=== PATIENT | male | born 1960 | race Caucasian/White ===

== ENCOUNTER 2021-12-29 11:24 | Outpatient (CLI) | payer BC ==
[2021-12-29 12:27] LABS: Mean Corpuscular HGB CONC 34.8 g/dL (32.0-36.0); Mean Corpuscular Hemoglobin 30.6 pg (27.0-33.0); Mean Corpuscular Volume 87.8 fl (81.2-95.1); Mean Platelet Volume 11.3 fl (7.4-10.4); Platelet Count 192 10x3/uL (150-450); RBC Distribution Width 12.7 % (11.5-14.5); Red Blood Cell (RBC) Count 4.58 10x6/uL (4.32-5.72); White Blood Cell (WBC) Count 6.2 10x3/uL (3.5-10.5)
[2021-12-29 12:40] LABS: Anion Gap 12 mmol/L (10-20); BUN (Urea Nitrogen) 19 mg/dL (8.4-25.7); Calc. Creatinine Clearance 0 mL/min (70-130); Calcium 8.8 mg/dL (7.8-10.44); Carbon Dioxide 25 mmol/L (23-31); Chloride 104 mmol/L (98-107); Estimated GFR 97; Glucose 247 mg/dL (80-115); Potassium 4.7 mmol/L (3.5-5.1); Sodium 136 mmol/L (136-145)
== END 2021-12-29 11:25 | disposition home or self-care (01) ==
LOC: CSHLAB 11:24
PROVIDERS: ATTEND Orthopaedic Surgery
DX: Z01.818 Encounter for other preprocedural examination (principal); Z20.822 Contact with and (suspected) exposure to COVID-19; M70.22 Olecranon bursitis, left elbow; M24.022 Loose body in left elbow
CPT/HCPCS: 80048; 85027; 87811; 93005; 93010

== ENCOUNTER 2022-01-03 06:06 | Day surgery (SDC) | payer BC ==
[2022-01-01 17:32] VITALS: BMI 28.7
[2022-01-03] MEDS ORDERED: Lidocaine 1% MPF 2 ML VIAL ONE (06:48)
[2022-01-03] MEDS ORDERED: EPINEPHrine 1 MG/ML AMP ONE (06:51)
[2022-01-03] MEDS ORDERED: Bupivacaine PF 0.5% 30 ML VIAL ONE (06:51)
[2022-01-03] MEDS ORDERED: Neomycin-Polymyxin 1 ML AMP ONE (06:52)
[2022-01-03] MEDS ORDERED: Ketamine 50 MG/ML (10ML VIAL) ONE (07:20)
[2022-01-03] MEDS ORDERED: SUGAMMADEX SODIUM 200 MG/2 ML VIAL ONE (07:20)
[2022-01-03] MEDS ORDERED: PROPOFOL 20 ML ONE (07:23)
[2022-01-03] MEDS ORDERED: Fentanyl 100 MCG/2 ML VIAL ONE (07:23)
[2022-01-03] MEDS ORDERED: CEFAZOLIN 2 GM VIAL ONE (07:24)
[2022-01-03] MEDS ORDERED: Ketorolac Tromethamine 30 MG/ML VIAL ONE (07:24)
[2022-01-03] MEDS ORDERED: Lidocaine 1% PF 5 ML VIAL ONE (07:24)
[2022-01-03] MEDS ORDERED: Ondansetron PF 4 MG/2 ML Vial ONE (07:24)
[2022-01-03] MEDS ORDERED: Lidocaine 2% PF 5 ML VIAL ONE (07:24)
[2022-01-03] MEDS ORDERED: Dexamethasone 20 MG/5 ML VIAL ONE (07:24)
[2022-01-03] MEDS ORDERED: Rocuronium Bromide 10 MG/ML (10ML VIAL) ONE (07:24)
[2022-01-03] MEDS ORDERED: Midazolam HCl 2 mg/2 ml Vial ONE (08:11)
== END 2022-01-03 09:50 | disposition home or self-care (01) ==
LOC: CSHSDC 06:06
PROVIDERS: ATTEND Orthopaedic Surgery
PROC: 0MB40ZZ Excision of Left Elbow Bursa and Ligament, Open Approach (ICD-10-PCS; principal; 2022-01-03)
DX: M70.22 Olecranon bursitis, left elbow (principal); F32.A Depression, unspecified; Z79.899 Other long term (current) drug therapy; Z20.822 Contact with and (suspected) exposure to COVID-19
CPT/HCPCS: J0171; J0690; J1100; J1885; J2001; J2250; J2405; J2704; J3010; S0020